=== PATIENT | male | born 1960 | race Caucasian/White ===

== ENCOUNTER 2020-05-29 10:41 | Emergency (ER) | payer OTHER ==
[~2020-05-29] VITALS: Ht 185.4 cm; Wt 117.5 kg
[~2020-05-29 10:41] MED LIST: AMLO-150 PO; IBUP100T2 PO; LISI-170 PO; NITR0.4T41 SL
[2020-05-29] MEDS ORDERED: HYDR25TA6 PO (11:15)
[2020-05-29] MEDS ORDERED: METF10007 PO (11:15)
[2020-05-29] MEDS ORDERED: GLIP2.5T3 PO (11:15)
[2020-05-29] MEDS ORDERED: LOSA50TA14 PO (11:15)
[2020-05-29] MEDS ORDERED: ONDANSETRON 2MG/ML, 2ML ONE (11:20)
[2020-05-29] MEDS ORDERED: MORPHINE SULFATE 4 MG/ML, 1ML ONE ×3 (11:20→14:49)
[2020-05-29] MEDS: MORPHINE SULFATE 4 MG/ML, 1ML IVPush PRN ×2 (11:37→12:46)
--- NOTE | 2020-05-29 11:40 | NUR ---
PT HERE WITH C/O RECTAL PAIN X1 WEEK. IV PLACED AND MEDICATED PER APR. CALL LIGHT PLACED WITHIN REACH, PT'S SPOUSE AT BEDSIDE.
[2020-05-29 11:52] LABS: BASOPHILS % (AUTO) 1 % (0-1); EOSINOPHILS % (AUTO) 4 % (1-7); LYMPHOCYTES % (AUTO) 21 % (22-44); MEAN CORPUSCULAR HEMOGLOBIN 31.7 pg (27.5-34.5); MEAN CORPUSCULAR HGB CONC 34.8 g/dL (33.2-36.2); MEAN PLATELET VOLUME 7.6 fL (7.4-10.4); MONOCYTES % (AUTO) 9 % (2-9); NEUTROPHILS % (AUTO) 66 % (42-75); PLATELET COUNT 110 x10^3/uL (130-400); RED BLOOD COUNT 4.55 x10^6/uL (4.38-5.82); RED CELL DISTRIBUTION WIDTH 12.7 % (9.4-14.8)
[2020-05-29 11:53] LABS: MD NO
[2020-05-29] MEDS ORDERED: SODIUM CHLORIDE FLUSH 10ML SYR IVF ONE (12:00)
[2020-05-29] MEDS ORDERED: ONDANSETRON 2MG/ML, 2ML IVPush ONE (12:00)
[2020-05-29 12:03] LABS: ALBUMIN 3.4 g/dL (3.4-5.0); ANION GAP 5 mmol/L (5-15); CALCIUM 9.2 mg/dL (8.5-10.1); CHLORIDE 104 mmol/L (98-107); CREATININE 0.98 mg/dL (0.7-1.3)
[2020-05-29] MEDS ORDERED: OMNIPAQUE 350 MG/ML, 100ML BOTTLE ONE (12:19)
--- NOTE | 2020-05-29 12:47 | NUR ---
PT BACK FROM CT, CONTINUES TO C/O PAIN. MEDICATED PER APR. VSS.
[2020-05-29] MEDS ORDERED: LIDOCAINE-MPF 1%, 5ML INFIL ONE (14:30)
[2020-05-29] MEDS ORDERED: MORPHINE SULFATE 4 MG/ML, 1ML IV PRN (14:30)
[2020-05-29] MEDS ORDERED: LIDOCAINE-MPF 1%, 5ML ONE (14:35)
[2020-05-29 16:06] VITALS: BP 145/86
== END 2020-05-29 16:27 | disposition home or self-care (01) ==
LOC: ED 12:17
DX: K61.1 Rectal abscess (principal); K61.0 Anal abscess; M79.89 Other specified soft tissue disorders; I10 Essential (primary) hypertension; E11.9 Type 2 diabetes mellitus without complications
CPT/HCPCS: 36415; 46050; 72193; 80048; 82040; 85025; 96374; 96375; 96376; 99285; J2270; J2405; Q9967